=== PATIENT | male | born 1965 | race Caucasian/White ===

== ENCOUNTER 2016-12-09 18:11 | Emergency (ER) | payer BC ==
[~2016-12-09 18:11] MED LIST: METH5TAB PO
[2016-12-09 18:13] VITALS: BP 185/107; PULSE 75; RESP 18; TEMP 98.6; O2SAT 97
--- NOTE | 2016-12-09 18:24 | PD ---
Physical Exam Time Seen by Provider: 18:23 Narrative 51yo M c/o left thumb laceration from a water hose today. +up to date on tetanus. Patient seen in triage. VS reviewed. Awaiting bed placement. Data Data Last Documented VS Vital Signs Date Time Temp Pulse Resp B/P Pulse Ox O2 Delivery O2 Flow Rate FiO2 12/09/16 18:13 98.6 75 18 185/107 97 Room Air MDM Supervised Visit with RAMSES: Gail Márquez Dec 09, 2016 18:24
--- NOTE | 2016-12-09 19:08 | PD ---
HPI Chief Complaint: Laceration/Skin Injury Time Seen by Provider: 19:08 Travel History International Travel<30 days: No Contact w/Intl Traveler<30days: No Traveled to known affect area: No History of Present Illness HPI 51 YO right hand dominant male presents to the ED for evaluation of laceration of the left thumb. Patient states that he was repairing a water hose, cut it with a new bladed in a utility knife, accidentally cut his finger in the process. This occurred just before arrival. Patient endorses mild numbness. Denies limited ROM. Denies other somatic complaints.States tetanus immunization UTD. [facility] Past Medical History Medical History: Denies Significant Hx Tetanus Vaccination: < 5 Years Influenza Vaccination: Yes Past Surgical History Surgical History: No Previous Surgery Social History Alcohol Use: No Tobacco Use: Yes (1- 06/28 PPD) Substance Use: No (pt denies) Allergies-Medications (Allergen,Severity, Reaction): Coded Allergies: No Known Allergies (Verified , 12/09/16) Reported Meds & Prescriptions Reported Meds & Active Scripts Active No Active Prescriptions or Reported Medications Review of Systems Except as stated in HPI: all other systems reviewed are Neg Physical Exam Narrative GENERAL: Well-nourished, well-developed white male in NAD. SKIN: Focused skin assessment warm/dry. There is a 3 cm curvilinear laceration in the distal tip of the left thumb. HEAD: Normocephalic. EYES: No scleral icterus. No injection or drainage. NECK: Supple, trachea midline. No JVD or lymphadenopathy. CARDIOVASCULAR: Regular rate and rhythm without murmurs, gallops, or rubs. RESPIRATORY: Breath sounds equal bilaterally. No accessory muscle use. GASTROINTESTINAL: Abdomen soft, non-tender, nondistended. MUSCULOSKELETAL: No cyanosis, or edema. Focused left upper extremity exam: 2+ radial pulse. Patient retains full, active, painless range of motion of the digits of the left hand. Neurovascularly intact. BACK: Nontender without obvious deformity. No CVA tenderness. Data Data Last Documented VS Vital Signs Date Time Temp Pulse Resp B/P Pulse Ox O2 Delivery O2 Flow Rate FiO2 12/09/16 18:46 17 12/09/16 18:13 98.6 75 185/107 97 Room Air Orders Lidocaine 1% Inj (50 Ml) (Xylocaine 1% I (12/09/16 19:30) [facility] Medical Decision Making Medical Screen Exam Complete: Yes Emergency Medical Condition: Yes Differential Diagnosis laceration versus hemorrhage versus need for tetanus immunization versus other Narrative Course 51 YO right hand dominant male presents to the ED for evaluation of laceration of the left thumb which occurred just before arrival. Patient states that he was repairing a water hose, cut it with a new bladed in a utility knife, accidentally cut his finger in the process. States tetanus immunization UTD. Vitals reviewed. Physical exam reveals a 3 cm curvilinear laceration of the distal tip of the tuft of the left thumb. The patient retains full, active, painless range of motion of the digits of the left hand. Neurovascular intact. Laceration repair was performed. Please see my procedure note for details. He was provided detailed wound care instructions. It is noted that his BP was elevated in triage, will recheck before discharge. He denies history of HTN. Patient states that he will monitor blood pressure and seek evaluation by his primary care should it remained elevated. We discussed reasons to return to the ED. He is instructed to monitor for signs of infection, keep the wound clean, dry and covered, return for suture removal in 7-10 days. He indicated understanding of the instructions and is agreeable to the care plan. He is stable and discharged home. Procedures Procedure Narrative LACERATION LOCATION: Left thumb, distal aspect LENGTH: 3 cm NUMBER OF STITCHES/MIKE: 8 REPAIR: The area of the laceration was prepped with Betadine and sterilely draped. A digital block was performed with 1% lidocaine. The wound was copiously irrigated and explored without evidence of foreign body, tendon injury or neurovascular injury. The wound was closed using 4-0 Ethilon. This was a single layer repair. A sterile dressing was applied. The patient was advised to keep the dressing clean and dry. Patient tolerated the procedure well. Diagnosis Primary Impression: Laceration of finger of left hand Qualified Code: S61.012A - Laceration of left thumb without foreign body without damage to nail, initial encounter Referrals: Hand Surgeon Patient Instructions: Care For Your Stitches (ED), Finger Laceration (ED), General Instructions Additional Instructions: Rest, hydrate. Do not change the dressing for 24 hours. You may bathe normally. Do not submerge the wound. After bathing pat of wound dry. Allow the wound to air dry for 10-15 minutes. Apply a thin layer of antibiotic ointment and a clean, dry dressing. Utilize [id number] pain medications, as described on the label, as needed. Monitor for signs of infection as discussed. Suture removal in 7-10 days. Return to the ED for any urgent or emergent medical condition. Scripts No Active Prescriptions or Reported Meds Disposition: 01 DISCHARGE HOME Condition: Stable Margoth [place] Dec 09, 2016 19:08
[2016-12-09] MEDS ORDERED: LIDOCAINE HCL 1% 50 ML VIAL INFIL ONE (19:30)
[2016-12-09 20:36] VITALS: BP 188/99; PULSE 78; RESP 16; O2SAT 97
== END 2016-12-09 21:32 | disposition home or self-care (01) ==
LOC: NEPD 18:11
DX: S61.012A Laceration without foreign body of left thumb without damage to nail, initial encounter (principal); R03.0 Elevated blood-pressure reading, without diagnosis of hypertension; F17.200 Nicotine dependence, unspecified, uncomplicated; W26.0XXA Contact with knife, initial encounter
CPT/HCPCS: 12002